=== PATIENT | female | born 1960 | race Caucasian/White ===

== ENCOUNTER 2022-06-18 10:33 | Observation (INO) | payer OTHER, SELFPAY ==
[2022-06-18] VITALS (9 sets, daily range): BP systolic 104–129; BP diastolic 54–89; PULSE 81–96; RESP 14–18; TEMP 36.7–37.6; O2SAT 90–97; BMI 35.9; BMI 36.0
--- NOTE | 2022-06-18 11:50 | CRLHL7_ITS ---
For Patients: As a result of the Cures Act, medical imaging exams and procedure reports are released immediately into your electronic medical record. You may view this report before your referring provider. If you have questions, please contact your health care provider. INDICATION: Shortness of breath TECHNIQUE: Chest radiograph 1 view COMPARISON: None FINDINGS: The sensitivity and specificity of the exam are severely limited by the patient`s body habitus. Mediastinum: The patient is status post transverse sternotomy and aortic valve replacement. The cardiac silhouette is moderately enlarged but may be accentuated by the portable technique. Lung: Small lung volumes present with minimal right basilar atelectasis. No sign of pleural effusion seen. No pneumothorax is identified. Bone and Soft tissue: Unremarkable for age. IMPRESSIONS: 1. The cardiac silhouette is moderately enlarged but may be accentuated by the portable technique. 2. Small lung volumes present with minimal right basilar atelectasis. Dictated by Chalo Larios MD @ 06/18/2022 1:17:18 PM Dictated by: Chalo Larios MD @ 06/18/2022 13:17:25 (Electronically Signed)
[2022-06-18 12:54] LABS: Basophils Percent Auto 0.6 % (0.0-3.0); Eosinophils Percent Auto 1.9 % (0.0-7.0); Hemoglobin* 10.1 gm/dL (12.0-16.0); Mean Corpuscular HGB Conc 32 gm/dL (32-36); Mean Corpuscular Hemoglobin 30 pg (26-34); Mean Corpuscular Volume 94 fL (80-100); Monocytes Percent Auto 5.9 % (0.0-11.0); Neutrophils Percent Auto 80.9 % (42.0-72.0); Platelet Count* 715 K/uL (140-440); RDW Coefficient of Variation % 13.2 % (11.5-15.5); Red Blood Count 3.41 m/uL (4.00-5.20)
[2022-06-18 12:59] LABS: Slide Review Reflex No
[2022-06-18 13:04] LABS: Chloride* 99 mmol/L (96-114); Potassium* 4.3 mmol/L (3.6-5.1); Sodium* 137 mmol/L (135-149)
[2022-06-18 13:07] LABS: Blood Urea Nitrogen* 21 mg/dL (7-30); Calcium* 9.6 mg/dL (8.4-10.6); Carbon Dioxide* 30 mmol/L (20-32); Creatinine* 0.6 mg/dL (0.5-1.5); Est. Creatinine Clearance* 50.37; Estimated Glomerular Filt Rate 101 ml/min; Glucose* 130 mg/dL (60-115)
--- NOTE | 2022-06-18 14:20 | CRLHL7_ITS ---
For Patients: As a result of the Century Cures Act, medical imaging exams and procedure reports are released immediately into your electronic medical record. You may view this report before your referring provider. If you have questions, please contact your health care provider. INDICATION: [id number]. TECHNIQUE: CT chest PE was acquired with 95 cc Isovue 370 IV contrast. COMPARISON: None. FINDINGS: Heart and vasculature: Contrast opacification of the pulmonary arterial tree is adequate. No sign of pulmonary embolism. Heart is mildly enlarged. Aortic valvular repair. Small pericardial effusion. Few tiny foci of hyperdensity adjacent to the ascending aorta (series 4, image 72), possibly postsurgical in nature. Lungs and pleura: 1.4 centimeter rounded right posterior upper lobe subpleural nodule, possibly related to focal atelectasis. Other scattered areas of dependent atelectasis. No pleural effusions, pleural thickening, or pneumothorax. Lymph nodes/mediastinum: Focal area complex fluid/soft tissue density in the retrosternal space immediately adjacent to sternotomy site. Multiple mildly enlarged mediastinal nodes, likely reactive. Chest wall: No masses. Upper abdomen: Moderate size hiatal hernia. Bones: Unremarkable for age. IMPRESSION: No pulmonary embolism as questioned. Focal area complex fluid/soft tissue density in the retrosternal space, immediately adjacent to the sternotomy site possibly postsurgical in nature. Superimposed infection should be clinically excluded. Mild cardiomegaly status post aortic valve repair with small pericardial effusion. Few tiny foci of hyperdensity adjacent to the ascending aorta (series 4, image 72), possibly postsurgical in nature. 1.4 centimeter rounded right posterior upper lobe subpleural nodule. Recommend correlation with prior imaging available. If not, recommend follow-up CT in 3 months. Please note that all CT scans at this facility use dose modulation, iterative reconstruction, and/or weight-based dosing when appropriate to reduce radiation dose to as low as reasonably achievable. Dictated by Cosme Jerry MD @ 06/18/2022 4:29:04 PM (Electronically Signed)
--- NOTE | 2022-06-18 15:28 | ED_ITS ---
HPI - General Adult General Chief complaint: Shortness of Breath/Dyspnea Stated complaint: shortness of breatj Time Seen by Provider: 06/18/22 11:28 History of Present Illness HPI narrative: 62-year-old female coming in today complaining of not feeling. She states that on 06/06 she had an aortic valve replacement done in [place]. She was complaining of chest pain, back pain and shortness of breath immediately after surgery. She feels like she was discharged home to [place] and that her pain and shortness of breath were not adequately treated. She then flew on the , to [place] on her way back to [place]. She developed worsening chest pain and shortness of breath while on the airplane and an ambulance was called. Ambulance picked her up from the airport it took her to the hospital. Thorough workup was done which included a CT to rule out PE and nothing was found. According to the patient she was quite hypoxic however was discharged home on oxygen. She presents today stating that she still feels very short of breath. She states that her pain is better. She states that she cannot see her incision in the groin but feels like it is moist. She also complains that the incision under the right breast is moist. She is concerned that no one is taking her shortness of breath seriously. She states that her body just cannot take in the oxygen appropriately since her surgery. Her pain, in her chest and in her back, have both been getting better over the last couple days. However is was very stressful driving here from [place] postoperatively. She is not on a blood thinner aside from a daily aspirin. She has not been having any fevers, nausea or vomiting. Related Data Home Medications Medication Instructions Recorded Confirmed albuterol sulfate 90 mcg/actuation inhalation 06/18/22 aerosol inhaler aspirin 325 mg tablet mg 06/18/22 methocarbamol 750 mg tablet mg 06/18/22 metoprolol tartrate 25 mg tablet mg 06/18/22 oxycodone 5 mg tablet mg 06/18/22 potassium chloride 20 mEq meq PO 06/18/22 tablet,extended release(part/cryst) torsemide 10 mg tablet mg 06/18/22 Allergies Allergy/AdvReac Type Severity Reaction Status Date / Time No Known Drug Allergies Allergy Verified 06/18/22 11:09 Review of Systems Status of ROS: Reports: 10 or more systems reviewed and unremarkable except as noted in History and below [facility] Surgical History S/P aortic valve repair Social History Smoking Status: Smoker, status unknown How often do you have six or more drinks on one occasion: Never AUDIT-C Alcohol total score: 0 Non-prescribed substance use: denies use Exam Narrative: Exam Narrative: Well-nourished well-developed patient in no acute distress but she is a bit anxious. Alert and oriented. Answers questions appropriately. Mood and affect are appropriate. Thoughts are goal oriented and rational. No tangential or magical thinking noted. Patient speaks in full sentences without needing to catch their breath. HEENT: Normocephalic atraumatic. Pupils are equally round reactive to light. Extraocular muscles are intact. Conjunctivae are moist without any icterus noted. Moist mucous membranes. Posterior pharynx is normal. Neck is soft without any lymphadenopathy or thyromegaly. No masses are appreciated. Cardiovascular: Heart is regular rate and rhythm S1 and S2 are present with a 2/6 murmur. Lungs: End expiratory bibasilar crackles. Abdomen: Soft and nontender nondistended with normal bowel sounds. No guarding or rebound. No masses or organomegaly appreciated. Extremities: Bilateral lower extremities are without edema. Normal DP and PT pulses. Skin: Well perfused without any obvious rashes. Incision under the right breast is moist but does not appear infected, the skin edges have not closed up. She still has a suture in place. Her incision in the groin is erythematous and has purulent drainage. Const: Vital Signs, click to edit/add: Vital Signs - 24 hr 06/18/22 11:09 06/18/22 12:10 06/18/22 13:16 Temperature 98.1 F Pulse Rate [Right Pulse Oximeter] 96 92 Respiratory Rate 14 16 Blood Pressure [Ri ght Upper Arm] 129/89 112/54 L Pulse Oximetry 96 95 97 Oxygen Delivery Me thod Nasal Cannula Room Air Oxygen Flow Rate 2 06/18/22 14:00 06/18/22 17:54 Temperature 99.7 F H Pulse Rate [Right Pulse Oximeter] 86 85 Respiratory Rate 16 16 Blood Pressure [Ri ght Upper Arm] 117/55 L 104/69 Pulse Oximetry 97 95 Oxygen Delivery Me thod Room Air Room Air Oxygen Flow Rate Course Course Hospital Course: IV was established we proceeded with blood work which showed elevated white cell count at just above 14,000. This is unchanged from her visit in [place] on 06/14/2022. Hemoglobin is stable at just above 10. However her platelet count 1 from [id number] to [id number]. I did consult with Dr. Varner who is concerned about the possibility of infection versus acute leukemia. She recommended peripheral blood smear and a PE study. Did go ahead and do that- no PE was visualized. She does have what appears to be hematoma present which is unchanged from her previous CT scan done in [place] she has a mild pericardial effusion also unchanged from the exam done in [place]. Peripheral blood smear was ordered and sent out. I did consult with , cardiology at [facility], who is also concerned about the thrombocytosis. He recommended admission, repeat labs and an echocardiogram. We did go ahead and draw blood cultures, do a wound culture of her groin, and per Dr. Alcocer, started her on vanc and Zosyn. Patient remained hemodynamically stable while in the ED: She was not hypoxic standing 94-97% on room air, pulse in the 80s to 90s and blood pressure was stable. Vital Signs Vital signs: Initial Vital Signs Temperature 98.1 F 06/18/22 11:09 Temperature Source Temporal Artery Scan 06/18/22 11:09 Pulse Rate 96 06/18/22 11:09 Pulse Rhythm 06/18/22 11:09 Respiratory Rate 14 06/18/22 11:09 Blood Pressure 129/89 06/18/22 11:09 Blood Pressure Mean 102 06/18/22 11:09 Blood Pressure Position Sitting 06/18/22 11:09 Pulse Oximetry 96 06/18/22 11:09 Oxygen Delivery Method 06/18/22 11:09 Oxygen Flow Rate 2 06/18/22 11:09 Vital Signs Temperature 98.1 F 06/18/22 11:09 Pulse Rate 96 06/18/22 11:09 Respiratory Rate 14 06/18/22 11:09 Blood Pressure 129/89 06/18/22 11:09 Pulse Oximetry 96 06/18/22 11:09 Oxygen Delivery Method 06/18/22 11:09 Oxygen Flow Rate 2 06/18/22 11:09 Temperature 99.7 F H 06/18/22 17:54 Pulse Rate 85 06/18/22 17:54 Respiratory Rate 16 06/18/22 17:54 Blood Pressure 104/69 06/18/22 17:54 Pulse Oximetry 95 06/18/22 17:54 Oxygen Delivery Method 06/18/22 17:54 Oxygen Flow Rate 2 06/18/22 11:09 Medical Decision Making MDM Narrative Medical decision making narrative: 62-year-old female status post aortic valve replacement presenting with acute thrombocytosis, cellulitis of groin incision, subjective shortness of breath status post aortic valve replacement. Patient will be admitted per the recommendation of Cardiology. Medical Records Medical records reviewed: Yes I reviewed the patient's medical records Lab Data Lab results reviewed: Yes I reviewed the patient's lab results Labs: Lab Results 06/18/22 06/18/22 Range/Units 12:40 12:40 WBC 14.00 H (4.50-11.00) K/uL RBC 3.41 L (4.00-5.20) m/uL Hgb 10.1 L (12.0-16.0) gm/dL Hct 32.0 L (33.0-51.0) % MCV 94 (80-100) fL MCH 30 (26-34) pg MCHC 32 (32-36) gm/dL RDW Coeff of Ad[place] 13.2 (11.5-15.5) % Plt Count 715 H (140-440) K/uL Neut % (Auto) 80.9 H (42.0-72.0) % Lymph % (Auto) 10.0 L (20-44) % [place] % (Auto) 5.9 (0.0-11.0) % Eos % (Auto) 1.9 (0.0-7.0) % Baso % (Auto) 0.6 (0.0-3.0) % Neut # (Auto) 11.30 H (1.7-7.0) K/uL Lymph # (Auto) 1.40 (0.90-2.90) K/uL [place] # (Auto) 0.80 (0.00-0.90) K/UL Eos # (Auto) 0.30 (0.00-0.50) K/uL Baso # (Auto) 0.10 (0.00-0.30) K/uL Abs Immat Gran (auto) 0.10 (0.00-0.30) K/uL Sodium 137 (135-149) mmol/L Potassium 4.3 (3.6-5.1) mmol/L Chloride 99 (96-114) mmol/L Carbon Dioxide 30 (20-32) mmol/L BUN 21 (7-30) mg/dL Creatinine 0.6 (0.5-1.5) mg/dL Estimated Creat Clear 50.37 Estimated GFR 101 ml/min Glucose 130 H (60-115) mg/dL Calcium 9.6 (8.4-10.6) mg/dL NT-Pro-B Natriuret Pep 760 H (0-125) PG/mL Imaging Data Chest x-ray: Attestation: I have reviewed the pertinent imaging results. Radiologist's impression: TECHNIQUE: Chest radiograph 1 view COMPARISON: None FINDINGS: The sensitivity and specificity of the exam are severely limited by the patient`s body habitus. Mediastinum: The patient is status post transverse sternotomy and aortic valve replacement. The cardiac silhouette is moderately enlarged but may be accentuated by the portable technique. Lung: Small lung volumes present with minimal right basilar atelectasis. No sign of pleural effusion seen. No pneumothorax is identified. Bone and Soft tissue: Unremarkable for age. IMPRESSIONS: 1. The cardiac silhouette is moderately enlarged but may be accentuated by the portable technique. 2. Small lung volumes present with minimal right basilar atelectasis. CT scan - chest: Attestation: I have reviewed the pertinent imaging results. Radiologist's impression: TECHNIQUE: CT chest PE was acquired with 95 cc Isovue 370 IV contrast. COMPARISON: None. FINDINGS: Heart and vasculature: Contrast opacification of the pulmonary arterial tree is adequate. No sign of pulmonary embolism. Heart is mildly enlarged. Aortic valvular repair. Small pericardial effusion. Few tiny foci of hyperdensity adjacent to the ascending aorta (series 4, image 72), possibly postsurgical in nature. Lungs and pleura: 1.4 centimeter rounded right posterior upper lobe subpleural nodule, possibly related to focal atelectasis. Other scattered areas of dependent atelectasis. No pleural effusions, pleural thickening, or pneumothorax. Lymph nodes/mediastinum: Focal area complex fluid/soft tissue density in the retrosternal space immediately adjacent to sternotomy site. Multiple mildly enlarged mediastinal nodes, likely reactive. Chest wall: No masses. Upper abdomen: Moderate size hiatal hernia. Bones: Unremarkable for age. IMPRESSION: No pulmonary embolism as questioned. Focal area complex fluid/soft tissue density in the retrosternal space, immediately adjacent to the sternotomy site possibly postsurgical in nature. Superimposed infection should be clinically excluded. Mild cardiomegaly status post aortic valve repair with small pericardial effusion. Few tiny foci of hyperdensity adjacent to the ascending aorta (series 4, image 72), possibly postsurgical in nature. 1.4 centimeter rounded right posterior upper lobe subpleural nodule. Recommend correlation with prior imaging available. If not, recommend follow-up CT in 3 months. ECG Data Attestation: I personally reviewed and interpreted this ECG as follows: (Normal sinus rhythm, pulse 85) Discharge Plan Discharge Clinical Impression: Infected incision, Shortness of breath, Thrombocytosis Patient Disposition: Admitted As Inpatient Condition: Stable
[2022-06-18] MEDS: PIPERACILLIN/TAZOBACTAM 3.375 GM in 0.9 % SODIUM CHLORIDE Mini-bag 100 ML IVPB ×2 (17:50→23:19)
[2022-06-18 17:55] LABS: NT Pro B Type NatriureticPept* 760 PG/mL (0-125)
[2022-06-18 19:12] LABS: SARS PCR* Negative SARS-CoV-2 (Negative)
--- NOTE | 2022-06-18 19:55 | P.IMHP_ITS ---
Hospitalist- H&P: HPI History of Present Illness Date Seen: 06/18/22 Chief complaint: shortness of breath Narrative: Peggy Blood is a 62 year old female who during a recent evaluation for revision of left partial knee replacement was noted to have an echo from 2018 showing mild aortic stenosis. During further evaluation, pt had a repeat echo which showed more severe stenosis. Pt elected to have a porcine aortic valve placed at [facility] in [facility] on June 06. Pt's surgery by report went well but she did have a prolonged stay due to what she describes as respiratory issues. Pt was discharged to home and was anticipating flying from [place] to [place] to [facility]. Pt became more short of breath during the fling to [place] and was actually taken via ambulance to [facility] in [place] where she was evaluated for approximately 7 hours. She had a workup including a PE CT scan, chest x ray, EKG, Electrolytes, CBC and serial troponins. Pt's medications were not adjusted but she was allowed to leave on 2 liters of oxygen to travel to her mother's house an hour away. Her mother then drove her back to [place] where she arrived last night. Pt's shortness of breath persisted and she noted that the incision under her left breast and in her right groin were becoming erythema tous. No fever was noted. Pt's lab in the [facility] ED showed a persistent elevation in the WBC at 14 as compared to that in [place]. The platelet count went from [address] of the chest showed no evidence of PE. Pt does have a 1.4 cm pulmonary nodule in the posterior upper lobe. ED physician spoke to both cardiology and hematology who recommended antibiotics, blood and wound cultures, echocardiogram in the am and repeat laboratory studies. Pt admitted. Review of Systems Status of ROS: Reports: 10 or more systems reviewed and unremarkable except as noted in History and below [facility] Medical History (Updated 06/18/22 @ 20:18 by Ridge Alcocer MD) GERD (gastroesophageal reflux disease) Low back pain Osteoarthritis Osteoarthritis Pulmonary nodule Shortness of breath Surgical History (Updated 06/18/22 @ 20:09 by Ridge Alcocer MD) Aortic valve replaced H/O left knee surgery History of carpal tunnel surgery S/P aortic valve repair Social History Smoking Status: Smoker, status unknown How often do you have six or more drinks on one occasion: Never AUDIT-C Alcohol total score: 0 Non-prescribed substance use: denies use Meds Home Medications and Allergies Home Medications Medication Instructions Recorded Confirmed Type albuterol sulfate 90 mcg/actuation inhalation 06/18/22 History aerosol inhaler aspirin 325 mg tablet mg 06/18/22 History methocarbamol 750 mg tablet mg 06/18/22 History metoprolol tartrate 25 mg tablet mg 06/18/22 History oxycodone 5 mg tablet mg 06/18/22 History potassium chloride 20 mEq meq PO 06/18/22 History tablet,extended release(part/cryst) torsemide 10 mg tablet mg 06/18/22 History Home Medication Comments: Metoprolol and torsemide started post aortic valve replacement Allergies Allergy/AdvReac Type Severity Reaction Status Date / Time No Known Drug Allergies Allergy Verified 06/18/22 11:09 Exam Narrative: Exam Narrative: EXAM GENERAL: Patient appears comfortable and well. EYES: No scleral icterus. THYROID: no thyroid nodules or thyromegaly. LYMPH: No supraclavicular or cervical lymphadenopathy. SKIN: The wound under the right breast shows erythema with stitches in place. No drainage or swelling. The wound in the left groin pain has proximally 2 cm opening through which we removed express a small amount exudative material. No deep fluctuance noted. Wound has been cultured. EXT: No dependent lower extremity pedal edema. HEART: 2/6 systolic murmur. Regular rate. LUNGS: Clear to auscultation bilaterally with no crackles or wheezes. ABD: Soft, non tender, non distended. PSYCH: Good eye contact, speech is not pressured. Const: Vital Signs, click to edit/add: Vital Signs - 24 hr 06/18/22 11:09 06/18/22 12:10 06/18/22 13:16 Temperature 98.1 F Pulse Rate [Right Pulse Oximeter] 96 92 Respiratory Rate 14 16 Blood Pressure [Ri ght Upper Arm] 129/89 112/54 L Pulse Oximetry 96 95 97 Oxygen Delivery Me thod Nasal Cannula Room Air Oxygen Flow Rate 2 06/18/22 14:00 06/18/22 17:54 Temperature 99.7 F H Pulse Rate [Right Pulse Oximeter] 86 85 Respiratory Rate 16 16 Blood Pressure [Ri ght Upper Arm] 117/55 L 104/69 Pulse Oximetry 97 95 Oxygen Delivery Me thod Room Air Room Air Oxygen Flow Rate Hospitalist - H&P: Result Labs Labs: Short CBC 06/18/22 Range/Units 12:40 WBC 14.00 H (4.50-11.00) K/uL Hgb 10.1 L (12.0-16.0) gm/dL Hct 32.0 L (33.0-51.0) % Plt Count 715 H (140-440) K/uL BMP 06/18/22 12:40 Sodium 137 Potassium 4.3 Chloride 99 Carbon Dioxide 30 BUN 21 Creatinine 0.6 Glucose 130 H Calcium 9.6 Assessment and Plan Assessment and plan (1) Aortic valve replaced: Status: Acute Assessment and Plan: Case reviewed with hematology and cardiology. The cultures of blood and from the wound have been collected. I did ask that the patient receive Vancomycin and Zosyn which we will continue due to the fresh valve. Peripheral smear requested. Repeating labs in am. Echocardiogram ordered. Pt showing no signs of sepsis but we will need to do all we can to prevent endocarditis. Will discuss the wounds with surgery. Requesting full records from [place] and [facility]. We did clean and redress the wounds. Pt appears to be up to date on her tetanus shot. (2) Shortness of breath: Status: Acute Assessment and Plan: Unclear eitiology. Pt saturating normally on room air. Will place on oxymetry and tele. No signs of CHF or PE on imaging. (3) Thrombocytosis: Status: Acute Assessment and Plan: This may be an acute phase reactant. Peripheral smear pending. Repeat CBC in the am. (4) Pulmonary nodule: Status: Acute Assessment and Plan: Will need outpt follow up. (5) GERD (gastroesophageal reflux disease): Status: Chronic Assessment and Plan: Treat symptomatically (6) Osteoarthritis: Status: Chronic Assessment and Plan: Treat symptomatically Plan Pt is to be a full code.
[2022-06-18 21:43] LABS: Reticulocyte Hemoglobin Equivi 23.9 pg (29.0-35.0); Reticulocyte Percent 3.3 % (0.5-2.0); Reticulocytes Absolute 0.11 # (0.03-0.08)
[2022-06-19] VITALS (9 sets, daily range): BP systolic 109–125; BP diastolic 48–72; PULSE 80–92; RESP 16–20; TEMP 36.3–36.8; O2SAT 90–97
[2022-06-19] MEDS: HYDROCODONE-ACETAMIN 5-325 MG 1 TAB PO ×3 (03:31→17:52)
--- NOTE | 2022-06-19 05:08 | PC.NURSE ---
Alert and oriented x4. Vital signs satble. Denies SOB. Tolerating knee pain well; 1/2 tab Hydrocodone administered for pain management. Independent with ambulation. Left groin incision dressing CDI. Abx administered as per orders without reactions being noted
[2022-06-19] MEDS: PIPERACILLIN/TAZOBACTAM 3.375 GM in 0.9 % SODIUM CHLORIDE Mini-bag 100 ML IVPB ×4 (05:53→22:44)
[2022-06-19 06:53] LABS: Basophils Absolute Auto 0.08 K/uL (0.00-0.30); Basophils Percent Auto 0.8 % (0.0-3.0); Eosinophils Absolute Auto 0.36 K/uL (0.00-0.50); Eosinophils Percent Auto 3.5 % (0.0-7.0); Hematocrit 29.3 % (33.0-51.0); Hemoglobin* 9.2 gm/dL (12.0-16.0); Lymphocytes Percent Auto 14.3 % (20-44); Mean Corpuscular HGB Conc 31 gm/dL (32-36); Mean Corpuscular Hemoglobin 29 pg (26-34); Mean Corpuscular Volume 94 fL (80-100); Monocytes Percent Auto 8.7 % (0.0-11.0); Neutrophils Absolute Auto 7.34 K/uL (1.7-7.0); Neutrophils Percent Auto 71.7 % (42.0-72.0); Platelet Count* 682 K/uL (140-440); RDW Coefficient of Variation % 13.4 % (11.5-15.5); Red Blood Count 3.13 m/uL (4.00-5.20); White Blood Count* 10.23 K/uL (4.50-11.00)
[2022-06-19 06:58] LABS: Slide Review Reflex No
[2022-06-19 07:10] LABS: Albumin* 3.8 g/dL (3.3-5.0); Chloride* 103 mmol/L (96-114)
[2022-06-19 07:11] LABS: Potassium* 4.2 mmol/L (3.6-5.1); Sodium* 138 mmol/L (135-149)
[2022-06-19 07:13] LABS: Alkaline Phosphatase* 74 U/L (40-150); Aspartate Amino Transferase* 20 U/L (12-35); Bilirubin Total* 0.3 mg/dL (0.1-1.5); Blood Urea Nitrogen* 19 mg/dL (7-30); Carbon Dioxide* 29 mmol/L (20-32); Creatinine* 0.7 mg/dL (0.5-1.5); Est. Creatinine Clearance* 50.37; Estimated Glomerular Filt Rate 98 ml/min
[2022-06-19 07:14] LABS: Alanine Aminotransferase* 17 U/L (4-35); Calcium* 9.1 mg/dL (8.4-10.6); Glucose* 112 mg/dL (60-115)
--- NOTE | 2022-06-19 11:00 | CRLHL7_ITS ---
For Patients: As a result of the Cures Act, medical imaging exams and procedure reports are released immediately into your electronic medical record. You may view this report before your referring provider. If you have questions, please contact your health care provider. Indication: left groin incision infection. assess any communication with vessels Technique: Grayscale and color Doppler ultrasound of the left groin soft tissues performed. Comparison: None Findings: There is a circumscribed fluid collection within the left groin subcutaneous tissues which is located superficial to the underlying vessels. No evidence of aneurysm or pseudoaneurysm. This collection measures 5.6 x 1.9 x 4.0 cm. Impression: 5.6 x 1.9 x 4.0 centimeter fluid collection without connection to the vessels. Dictated by Lazaro Kamara MD @ 06/19/2022 11:43:02 AM (Electronically Signed)
--- NOTE | 2022-06-19 11:00 | P.GSCN_ITS ---
History of Present Illness Consult details Date Seen: 06/19/22 Consult date: 06/19/22 Narrative: Patient is a very pleasant 62-year-old female who presented to the emergency department with fatigue and shortness of breath. She underwent a porcine aortic valve placement on 06/03/2022 in [facility]. She states that she traveled to the area in order to undergo the procedure. After she was discharged from the hospital she was flying home and had a layover in [place]. In [place] she reports that she started to have chest pain and shortness of breath. She was admitted to the hospital at that time and then subsequently discharged. From [place] she drove back home to [place], which took 3 days. Upon arrival to the area she immediately went to the emergency department for continued shortness of breath, fatigue and chest pain. During her initial workup there was evidence of redness and drainage from her left groin incision. Upon talking to the patient it sounds like this was an access point for ECMO during her initial procedure. The initial admitting physician opened up the incision just slightly and had approximately 40 mL purulent material that drained. This was cultured and patient has been started on antibiotics. Since the area has open she notes continued purulent drainage, redness to the area and tenderness. She denies any fevers or chills. She has 2 other incisions that are continuing to heal from the initial surgery. The incision on her chest is almost completely healed with no concern for infection or pain. She also has a small incision underneath her right breast, this does still have a suture in place and appears slightly irritated. She denies any drainage from this incision site. Review of Systems Status of ROS: Reports: 10 or more systems reviewed and unremarkable except as noted in History and below [facility] Medical History GERD (gastroesophageal reflux disease) Low back pain Osteoarthritis Osteoarthritis Pulmonary nodule Shortness of breath Surgical History Aortic valve replaced H/O left knee surgery History of carpal tunnel surgery S/P aortic valve repair Social History Highest level of school completed/degree received: some college, no degree Smoking Status: Never smoker Do you use any of these nicotine containing products: None Second hand tobacco smoke exposure: No How often do you have a drink containing alcohol: never How often do you have six or more drinks on one occasion: Never AUDIT-C Alcohol total score: 0 Non-prescribed substance use: denies use Caffeine: Yes (rarely) service: No Meds Home Medications and Allergies Home Medications Medication Instructions Recorded Confirmed Type albuterol sulfate 90 mcg/actuation 2 puff inhalation Q4H PRN 06/18/22 06/19/22 History aerosol inhaler aspirin 325 mg tablet 325 mg PO DAILY 06/18/22 06/19/22 History methocarbamol 750 mg tablet 750 mg PO TID PRN 06/18/22 06/19/22 History metoprolol tartrate 25 mg tablet 25 mg PO BID 06/18/22 06/19/22 History oxycodone 5 mg tablet 5 mg PO Q4H PRN 06/18/22 06/19/22 History potassium chloride 20 mEq 20 meq PO DAILY 06/18/22 06/19/22 History tablet,extended release(part/cryst) torsemide 10 mg tablet 10 mg PO BID 06/18/22 06/19/22 History fexofenadine 180 mg tablet 180 mg PO DAILY PRN 06/19/22 06/19/22 History (Rita Allergy) omeprazole 40 mg capsule,delayed 40 mg PO DAILY 06/19/22 06/19/22 History release Allergies Allergy/AdvReac Type Severity Reaction Status Date / Time No Known Drug Allergies Allergy Verified 06/18/22 11:09 Exam Narrative: Exam Narrative: General: Alert and oriented, no acute distress. Nontoxic in appearance Respiratory: Equal breath rise bilaterally, maintained on room air. CV: Well perfused Chest: Right sided chest incision well healed, some overlying scab no concern for infection and nontender to palpation. Small incision just below the right breast with silk suture in place, some surrounding erythema and irritation present but no drainage and nontender to palpation. The suture was removed and the incision redressed with benzoin and Steri-Strips. Genitourinary: Left groin incision with induration and surrounding erythema. Some continued purulent drainage and underlying fluctuance appreciated. Small 5 mm opening. Const: Vital Signs, click to edit/add: Vital Signs - 24 hr 06/18/22 11:09 06/18/22 12:10 06/18/22 13:16 Temperature 98.1 F Pulse Rate Pulse Rate [Pulse Oximeter] Pulse Rate [Right Pulse Oximeter] 96 92 Respiratory Rate 14 16 Blood Pressure [Ri ght Arm] Blood Pressure [Ri ght Upper Arm] 129/89 112/54 L Pulse Oximetry 96 95 97 Oxygen Delivery Me thod Nasal Cannula Room Air Oxygen Flow Rate 2 06/18/22 14:00 06/18/22 17:54 06/18/22 19:58 Temperature 99.7 F H 98.2 F Pulse Rate Pulse Rate [Pulse Oximeter] 81 Pulse Rate [Right Pulse Oximeter] 86 85 Respiratory Rate 16 16 18 Blood Pressure [Ri ght Arm] 121/64 Blood Pressure [Ri ght Upper Arm] 117/55 L 104/69 Pulse Oximetry 97 95 95 Oxygen Delivery Me thod Room Air Room Air Room Air Oxygen Flow Rate 06/18/22 20:21 06/18/22 22:49 06/18/22 23:00 Temperature 98.2 F Pulse Rate Pulse Rate [Pulse Oximeter] Pulse Rate [Right Pulse Oximeter] Respiratory Rate 18 18 Blood Pressure [Ri ght Arm] 116/75 Blood Pressure [Ri ght Upper Arm] Pulse Oximetry 90 92 92 Oxygen Delivery Me thod Nasal Cannula Room Air Oxygen Flow Rate 0 0 06/18/22 23:00 06/19/22 03:00 06/19/22 08:25 Temperature 98.2 F Pulse Rate 89 Pulse Rate [Pulse Oximeter] 81 80 Pulse Rate [Right Pulse Oximeter] Respiratory Rate 18 18 Blood Pressure [Ri ght Arm] 125/72 Blood Pressure [Ri ght Upper Arm] Pulse Oximetry 90 Oxygen Delivery Me thod Room Air Oxygen Flow Rate 0 06/19/22 07:00 06/19/22 07:00 Temperature 97.4 F L Pulse Rate Pulse Rate [Pulse Oximeter] 90 90 Pulse Rate [Right Pulse Oximeter] Respiratory Rate 18 18 Blood Pressure [Ri ght Arm] 110/48 L Blood Pressure [Ri ght Upper Arm] Pulse Oximetry 94 Oxygen Delivery Me thod Room Air Oxygen Flow Rate Results Labs Labs: Abnormal lab results 06/18/22 06/18/22 06/18/22 Range/Units 12:40 12:40 17:50 WBC 14.00 H (4.50-11.00) K/uL RBC 3.41 L (4.00-5.20) m/uL Hgb 10.1 L (12.0-16.0) gm/dL Hct 32.0 L (33.0-51.0) % MCHC (32-36) gm/dL Plt Count 715 H (140-440) K/uL Neut % (Auto) 80.9 H (42.0-72.0) % Lymph % (Auto) 10.0 L (20-44) % Neut # (Auto) 11.30 H (1.7-7.0) K/uL Absolute Retic 0.11 H (0.03-0.08) # Percent Retic 3.3 H (0.5-2.0) % Immature Retic Fraction 29.0 H (3.0-15.9) % Retic Hgb Equivalent 23.9 L (29.0-35.0) pg Glucose 130 H (60-115) mg/dL NT-Pro-B Natriuret Pep 760 H (0-125) PG/mL 06/19/22 Range/Units 06:22 WBC (4.50-11.00) K/uL RBC 3.13 L (4.00-5.20) m/uL Hgb 9.2 L (12.0-16.0) gm/dL Hct 29.3 L (33.0-51.0) % MCHC 31 L (32-36) gm/dL Plt Count 682 H (140-440) K/uL Neut % (Auto) (42.0-72.0) % Lymph % (Auto) 14.3 L (20-44) % Neut # (Auto) 7.34 H (1.7-7.0) K/uL Absolute Retic (0.03-0.08) # Percent Retic (0.5-2.0) % Immature Retic Fraction (3.0-15.9) % Retic Hgb Equivalent (29.0-35.0) pg Glucose (60-115) mg/dL NT-Pro-B Natriuret Pep (0-125) PG/mL Diabetes panel 06/18/22 06/19/22 Range/Units 12:40 06:22 Sodium 137 138 (135-149) mmol/L Potassium 4.3 4.2 (3.6-5.1) mmol/L Chloride 99 103 (96-114) mmol/L Carbon Dioxide 30 29 (20-32) mmol/L BUN 21 19 (7-30) mg/dL Creatinine 0.6 0.7 (0.5-1.5) mg/dL Glucose 130 H 112 (60-115) mg/dL Calcium 9.6 9.1 (8.4-10.6) mg/dL AST 20 (12-35) U/L ALT 17 (4-35) U/L Alkaline Phosphatase 74 (40-150) U/L Total Protein 7.0 (6.0-8.3) g/dL Albumin 3.8 (3.3-5.0) g/dL Calcium panel 06/18/22 06/19/22 Range/Units 12:40 06:22 Calcium 9.6 9.1 (8.4-10.6) mg/dL Albumin 3.8 (3.3-5.0) g/dL Pituitary panel 06/18/22 06/19/22 Range/Units 12:40 06:22 Sodium 137 138 (135-149) mmol/L Potassium 4.3 4.2 (3.6-5.1) mmol/L Chloride 99 103 (96-114) mmol/L Carbon Dioxide 30 29 (20-32) mmol/L BUN 21 19 (7-30) mg/dL Creatinine 0.6 0.7 (0.5-1.5) mg/dL Glucose 130 H 112 (60-115) mg/dL Calcium 9.6 9.1 (8.4-10.6) mg/dL Adrenal panel 06/18/22 06/19/22 Range/Units 12:40 06:22 Sodium 137 138 (135-149) mmol/L Potassium 4.3 4.2 (3.6-5.1) mmol/L Chloride 99 103 (96-114) mmol/L Carbon Dioxide 30 29 (20-32) mmol/L BUN 21 19 (7-30) mg/dL Creatinine 0.6 0.7 (0.5-1.5) mg/dL Glucose 130 H 112 (60-115) mg/dL Calcium 9.6 9.1 (8.4-10.6) mg/dL Total Bilirubin 0.3 (0.1-1.5) mg/dL AST 20 (12-35) U/L ALT 17 (4-35) U/L Alkaline Phosphatase 74 (40-150) U/L Total Protein 7.0 (6.0-8.3) g/dL Albumin 3.8 (3.3-5.0) g/dL All other labs normal. Imaging US - pelvic: image reviewed Assessment and Plan Assessment and plan (1) Superficial incisional infection of surgical site: Status: Acute Plan Patient is a 62-year-old female with evidence of a surgical site infection of the left groin. This is status post access from a recent cardiac surgery, suspect ECMO cannulation. It has been partially drained at bedside. A bedside ultrasound was performed with evidence of a continued fluid collection within the subcutaneous tissue. This does overlie the femoral vessels, but does not involve the vasculature. No evidence of any pseudoaneurysm. The incision was opened and irrigated at bedside. Wet to dry dressings were placed. Recommend b.i.d. wet to dry dressings while inpatient and then daily at the time of discharge. General Surgery Procedures I/D Type: abscess Site: other (Left groin ) Side (if applicable): left Sedation/analgesia: none Anesthetic used: lidocaine 1% Technique: incised with #11 blade Amount of fluid (mL): 10 Irrigation: Yes Packing used?: plain (kerlex soaked)
--- NOTE | 2022-06-19 11:31 | RESP.RT ---
Patient is SATing 97% on room air at rest. She does not require supplemental O2 at this time. She does have several risk factors for LM and does say that she snores and it was recommended that she be screened for LM in the past, but she has never scheduled an appointment.
--- NOTE | 2022-06-19 11:59 | PC.NURSE ---
Patient's groin wound was disharging a brownish disharges. Both wound at left groin and under right breast cleaned. Wound swab taken and wound irrigation done by the surgeon.
[2022-06-19] MEDS: OXYCODONE 5 MG TABLET PO ×2 (15:38→20:02)
--- NOTE | 2022-06-19 15:58 | PM.IMPN1 ---
Progress Note: A&P Assessment and plan (1) Shortness of breath: Status: Acute Assessment and Plan: 1. Seemingly resolved. 2. Our respiratory therapist assess the patient and she has no need for oxygen supplementation at this time. (2) Superficial incisional infection of surgical site: Status: Acute Assessment and Plan: 1. Our general surgeon has been assisting us with this. 2. The groin wound was impart debrided and then dressing applied. 3. Twice daily dressing changes in the hospital and then once daily out of the hospital. 4. Consider wound care referral postop ill is a koch. (3) Osteoarthritis of left knee: Status: Acute Assessment and Plan: 1. Will ask our physical therapist and occupational therapist to assess her at this time. 2. She hopes to start cardiopulmonary rehabilitation next week status post aortic valve replacement. (4) Aortic valve replaced: Status: Acute Assessment and Plan: 1. Restart aspirin tomorrow. 2. She is scheduled to start cardiopulmonary rehabilitation next week. Will need physical and occupational therapy to see her while in hospital to give her any recommendations in anticipation of initiating rehab next week. (5) Infected incision: Status: Acute Assessment and Plan: 1. Continue with IV antibiotics for now. 2. Continue with twice daily dressing changes in the hospital and switch to once daily after discharge from the hospital. (6) Thrombocytosis: Status: Acute Assessment and Plan: 1. Monitor CBC (7) GERD (gastroesophageal reflux disease): Status: Chronic Assessment and Plan: 1. Continue proton pump inhibitor use. (8) Pulmonary nodule: Status: Acute Assessment and Plan: 1. Will need followup in the future in regard to this. (9) Snoring: Status: Acute Assessment and Plan: 1. Reviewed with patient my concern that she may have undiagnosed obstructive sleep apnea. 2. Overnight oximetry test. Make referral for sleep assessment test in the outpatient setting prior. Plan 1. Reviewed my impressions with the patient. 2. Answered her questions are satisfaction. 3. Patient is agreeable to above stated plans and recommendations. Time Spent With Patient Total time spent: 50 minutes Subjective Time Seen by Provider: 10:00 Date Seen: 06/19/22 Interval history: Hospital day 2. Generally feels improved today compared to yesterday when she 1st presented. As I query her about her shortness of breath she indicates that that is not so much a problem as it is that she has been having a hard time clearing her throat since her valve replacement surgery 1 week ago. Even the ability to clear throat is slowly improving. Denies dyspnea at rest, paroxysmal nocturnal dyspnea, orthopnea. Has incisional chest discomfort but no chest heaviness, pressure, tightness. Denies syncope or near-syncope. Denies orthostasis. Denies nausea or vomiting. Denies fevers, rigors, diaphoresis. Acknowledged that she has been urged in the past t to obtain a sleep study assessment for possible obstructive sleep apnea. Acknowledges snoring at night. Often awakens in the morning not feeling refreshed. Difficult to manage her weight. Exam Narrative: Exam Narrative: Appears comfortable. No acute distress. Alert, articulate, cooperative, friendly. Mood and affect are congruent. Oriented to place, time, situation. Lungs are clear to auscultation. Heart tones with regular rhythm. Grade 2-3/6 systolic murmur. Abdomen with active bowel sounds. Left groin incisional wound inspected with Dr. Taylor and appears clean with serous drainage. Independent transfer, station, and gait. No focal motor neurologic deficits. Const: Vital Signs, click to edit/add: Vital Signs - 24 hr 06/18/22 17:54 06/18/22 19:58 06/18/22 20:21 Temperature 99.7 F H 98.2 F Pulse Rate Pulse Rate [Pulse Oximeter] 81 Pulse Rate [Right Pulse Oximeter] 85 Respiratory Rate 16 18 Blood Pressure [Ri ght Arm] 121/64 Blood Pressure [Ri ght Upper Arm] 104/69 Pulse Oximetry 95 95 90 Oxygen Delivery Me thod Room Air Room Air Oxygen Flow Rate Fraction of Inspir ed Oxygen 06/18/22 22:49 06/18/22 23:00 06/18/22 23:00 Temperature 98.2 F Pulse Rate Pulse Rate [Pulse Oximeter] 81 Pulse Rate [Right Pulse Oximeter] Respiratory Rate 18 18 18 Blood Pressure [Ri ght Arm] 116/75 Blood Pressure [Ri ght Upper Arm] Pulse Oximetry 92 92 Oxygen Delivery Me thod Nasal Cannula Room Air Oxygen Flow Rate 0 0 Fraction of Inspir ed Oxygen 06/19/22 03:00 06/19/22 08:25 06/19/22 07:00 Temperature 98.2 F Pulse Rate 89 Pulse Rate [Pulse Oximeter] 80 90 Pulse Rate [Right Pulse Oximeter] Respiratory Rate 18 18 Blood Pressure [Ri ght Arm] 125/72 Blood Pressure [Ri ght Upper Arm] Pulse Oximetry 90 Oxygen Delivery Me thod Room Air Oxygen Flow Rate 0 Fraction of Inspir ed Oxygen 06/19/22 07:00 06/19/22 11:28 06/19/22 11:00 Temperature 97.4 F L 97.4 F L Pulse Rate Pulse Rate [Pulse Oximeter] 90 90 Pulse Rate [Right Pulse Oximeter] Respiratory Rate 18 18 Blood Pressure [Ri ght Arm] 110/48 L 110/48 L Blood Pressure [Ri ght Upper Arm] Pulse Oximetry 94 97 97 Oxygen Delivery Me thod Room Air Room Air Room Air Oxygen Flow Rate 0 Fraction of Inspir ed Oxygen 0.21 0.21 Documenting provider has reviewed patient's vital signs: yes Labs Labs: Laboratory Results - last 24 hr 06/18/22 06/18/22 06/18/22 12:40 17:23 17:50 WBC RBC Hgb Hct MCV MCH MCHC RDW Coeff of [place]ilia Plt Count Neut % (Auto) Lymph % (Auto) [place] % (Auto) Eos % (Auto) Baso % (Auto) Neut # (Auto) Lymph # (Auto) [place] # (Auto) Eos # (Auto) Baso # (Auto) Abs Immat Gran (auto) Absolute Retic 0.11 H Percent Retic 3.3 H Immature Retic Fraction 29.0 H Retic Hgb Equivalent 23.9 L Sodium Potassium Chloride Carbon Dioxide BUN Creatinine Estimated Creat Clear Estimated GFR Glucose Calcium Total Bilirubin AST ALT Alkaline Phosphatase NT-Pro-B Natriuret Pep 760 H Total Protein Albumin SARS-CoV-2 (PCR) Negative SARS-CoV-2 06/19/22 06/19/22 06:22 06:22 WBC 10.23 RBC 3.13 L Hgb 9.2 L Hct 29.3 L MCV 94 MCH 29 MCHC 31 L RDW Coeff of [place] 13.4 Plt Count 682 H Neut % (Auto) 71.7 Lymph % (Auto) 14.3 L [place] % (Auto) 8.7 Eos % (Auto) 3.5 Baso % (Auto) 0.8 Neut # (Auto) 7.34 H Lymph # (Auto) 1.50 [place] # (Auto) 0.90 Eos # (Auto) 0.36 Baso # (Auto) 0.08 Abs Immat Gran (auto) 0.10 Absolute Retic Percent Retic Immature Retic Fraction Retic Hgb Equivalent Sodium 138 Potassium 4.2 Chloride 103 Carbon Dioxide 29 BUN 19 Creatinine 0.7 Estimated Creat Clear 50.37 Estimated GFR 98 Glucose 112 Calcium 9.1 Total Bilirubin 0.3 AST 20 ALT 17 Alkaline Phosphatase 74 NT-Pro-B Natriuret Pep Total Protein 7.0 Albumin 3.8 SARS-CoV-2 (PCR)
[2022-06-19] MEDS: METOPROLOL TARTRATE 25 MG TABLET PO (20:30)
--- NOTE | 2022-06-19 22:55 | PC.NURSE ---
Shift [id number]- Patient rates pain 4-8/10 this shift, with pain in back, knees and groin incision. She reports good pain relief with PRN pain medication- see eMAR. She remains on RA with saturations mid-high 90s% while awake. She is up ad harmony. Appetite intact. Incision under right breast with steri-strips- appears without discharge, but slightly moist apparently from sweat. Reinforced with a small piece of gauze. Dressing change to groin completed- appears to have minimal discharge there as well.
[2022-06-20 03:00] VITALS: BP 140/87; PULSE 91; RESP 20; TEMP 36.6; O2SAT 96
[2022-06-20] MEDS: OXYCODONE 5 MG TABLET PO ×4 (03:18→21:00)
[2022-06-20] MEDS: PIPERACILLIN/TAZOBACTAM 3.375 GM in 0.9 % SODIUM CHLORIDE Mini-bag 100 ML IVPB ×4 (05:15→22:45)
[2022-06-20 06:37] LABS: Hemoglobin* 9.3 gm/dL (12.0-16.0)
--- NOTE | 2022-06-20 06:53 | PC.NURSE ---
END OF SHIFT NOTE: PT PLEASANT AND COOPERATIVE. NOCTURNAL OXIMETRY STUDY PERFORMED OVERNIGHT. PT C/O DYSPNEA, SOB?AND LEFT KNEE PAIN. PT MOVES INDEPENDENTLY WITH WALKER. AMBULATES WELL WITH LEFT SIDED LIMP. NON-PRODUCTIVE COUGH. LS SLIGHTLY DIMINISHED IN POSTERIOR BASES. VSS ON RA; AFEBRILE. RATES LEFT KNEE PAIN 5-9/10 WITH RELIEF FROM OXYCODONE AND REST. DRESSING UNDER RIGHT BREAST AND TO LEFT GROIN C/D/I. PT HAD SMALL LOOSE STOOL THIS SHIFT.
[2022-06-20 07:06] LABS: NT Pro B Type NatriureticPept* 979 PG/mL (0-125)
[2022-06-20 07:41] VITALS: BP 119/66; PULSE 88; RESP 22; TEMP 36.4; O2SAT 94
[2022-06-20] MEDS: ALBUTEROL INHALER 2 PUFF IH (08:02)
[2022-06-20] MEDS: BUDESONIDE 0.5 MG/2ML NEB NEB ×2 (08:49→21:00)
[2022-06-20] MEDS: OMEPRAZOLE 20 MG CAPSULE DR 40 MG PO (08:50)
[2022-06-20] MEDS: TORSEMIDE 20 MG TABLET PO (08:50)
[2022-06-20] MEDS: METOPROLOL TARTRATE 25 MG TABLET PO ×2 (08:50→21:00)
[2022-06-20] MEDS: POTASSIUM CHLORIDE 10 MEQ CAPSULE ER 20 MEQ PO (08:50)
--- NOTE | 2022-06-20 09:11 | CRLHL7_ITS ---
For Patients: As a result of the Century Cures Act, medical imaging exams and procedure reports are released immediately into your electronic medical record. You may view this report before your referring provider. If you have questions, please contact your health care provider. INDICATION: 1 WEEK S/P AVR, NOW C/O OF LEFT CALF KAREN HORSE FOR 3-4 DAYS COMPARISON: None. TECHNIQUE: A compression venous ultrasound exam was performed of the left lower extremity using cronin-scale imaging, color Doppler and spectral Doppler analysis. FINDINGS: Sonographic imaging of the left lower extremity demonstrates normal compressibility and color Doppler venous blood flow within the common femoral vein, deep femoral vein, and the proximal greater saphenous vein. Within the thigh, the femoral vein is patent and compressible. At a lower level, the popliteal and posterior tibial veins also show normal compressibility and color Doppler venous blood flow. Hypoechoic occlusive clot located within the left soleus vein in the proximal calf. Partial DVT located within 1 of the paired peroneal veins in the proximal calf. Limited imaging of the contralateral groin demonstrates a normal spectral waveform and color Doppler venous blood flow within the right common femoral vein. Circumscribed fluid collection within the left thigh proximally again noted measuring 4.7 x 3.5 x 6.0 cm. IMPRESSION: Positive DVT within 1 of the paired left peroneal veins and within a deep muscular calf vein (soleus vein). Called to Dr. Jackson 1110 06.20.22. Dictated by Lazaro Kamara MD @ 06/20/2022 11:10:38 AM (Electronically Signed)
[2022-06-20] MEDS: IPRAT-ALBUT 0.5-2.5 MG/3 ML NEB 1 NEB IH ×4 (09:13→21:00)
--- NOTE | 2022-06-20 09:54 | NUTR.NU ---
YANET with verbal MD nutrition consult. RDN visited with patient whom reported her appetite and has been lower than normal, however she reports she has had recent surgery (aortic valve placed 06/06/22) which is the cause. She reports receiving diet education after that surgery, and declined diet education today. RDN encouraged patient to let staff know of any questions or concerns she may have. TRAVISN will continue to monitor and follow-up prn.
--- NOTE | 2022-06-20 10:32 | P.GSPN_ITS ---
Subjective Subjective Date Seen: 06/20/22 Interval history: Patient denies any pain or issues with her left groin wound. No reported fevers or chills. She does state that around 3:00 a.m. this morning she had a severe coughing fit and coughed up quite a bit of phlegm. When she woke up she describes having the feeling of ?an elephant on her chest?. Since then she has had a few breathing treatments, with some improvement but continued heaviness in her chest. She also reports pain in her left calf. This was being ultrasound this morning to evaluate for any DVT. Exam Narrative: Exam Narrative: General: Alert oriented. Nontoxic. Genitourinary: Left groin dressing removed. 3 cm x 2 cm x 1 cm wound with granulation tissue within wound bed, much less fibrinous exudate and no undrained fluid pockets. No surrounding erythema or induration. Nontender to palpation. Const: Vital Signs, click to edit/add: Vital Signs - 24 hr 06/19/22 11:28 06/19/22 11:00 06/19/22 15:20 Temperature 97.4 F L 98.1 F Pulse Rate Pulse Rate [Pulse Oximeter] 90 86 Respiratory Rate 18 16 Blood Pressure [Ri ght Arm] 110/48 L 109/54 L Pulse Oximetry 97 97 93 Oxygen Delivery Me thod Room Air Room Air Oxygen Flow Rate 0 Fraction of Inspir ed Oxygen 0.21 0.21 06/19/22 15:09 06/19/22 19:07 06/19/22 23:45 Temperature 98 F Pulse Rate 85 Pulse Rate [Pulse Oximeter] 92 84 Respiratory Rate 16 20 Blood Pressure [Ri ght Arm] 115/59 L Pulse Oximetry 96 Oxygen Delivery Me thod Room Air Oxygen Flow Rate Fraction of Inspir ed Oxygen 06/19/22 23:45 06/20/22 03:00 06/20/22 07:41 Temperature 97.8 F 97.8 F 97.6 F Pulse Rate Pulse Rate [Pulse Oximeter] 84 91 88 Respiratory Rate 20 20 22 Blood Pressure [Ri ght Arm] 119/62 140/87 H 119/66 Pulse Oximetry 96 96 94 Oxygen Delivery Me thod Room Air Room Air Room Air Oxygen Flow Rate 0 0 Fraction of Inspir ed Oxygen 0 0 Progress Note: A&P Assessment and plan (1) Superficial incisional infection of surgical site: Status: Acute Assessment and Plan: Groin wound is much better in appearance this morning following debridement yesterday at bedside. No concern for any further undrained fluid collections, less fibrinous exudate and healthy granulation tissue within wound bed. No concern for any surrounding cellulitis or induration. Recommend that she continue with twice daily dressing changes of Vashe soaked Kerlix and outer 4 x 4 while inpatient. At the time of discharge she can transition to once daily dressing changes with follow-up in surgery clinic to evaluate for wound healing. At this time general surgery to sign off. All other cares and workup to be done by hospitalist care team. Please call with any acute clinical changes, questio ns or concerns.
[2022-06-20 11:00] VITALS: BP 117/70; PULSE 72; RESP 20; TEMP 36.6; O2SAT 96
[2022-06-20] MEDS: ENOXAPARIN 100 MG/ML INJ 90 MG SUBCUT (11:05)
[2022-06-20 15:00] VITALS: BP 97/60; PULSE 92; RESP 18; TEMP 37; O2SAT 96
--- NOTE | 2022-06-20 15:25 | P.IMPN_ITS ---
Progress Note: A&P Assessment and plan (1) Asthma attack: Status: Acute Assessment and Plan: 1. Initiate scheduled DuoNebs. 2. Initiate scheduled budesonide nebulization. 3. Teach patient appropriate use of metered dose inhaler with process developer. Contin ue with albuterol meter dose rescue inhaler as needed. 4. Use of Aerobika device. (2) Snoring: Status: Acute Assessment and Plan: 1. In concert with now documented nocturnal hypoxia, high risk for underlying obstructive sleep apnea. (3) Nocturnal hypoxia: Status: Acute Assessment and Plan: 1. Documented on overnight oximetry test. In concert with snoring and obesity, high risk for underlying obstructive sleep apnea. 2. Will need outpatient sleep study to further assess. (4) Superficial incisional infection of surgical site: Status: Acute Assessment and Plan: 1. 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 On Zosyn IV. 2. Currently on vancomycin IV. Will stop the vancomycin. 3. When she is ready for discharge will transition to oral Augmentin 875/125 1 tab p.o. b.i.d. 4. Continue with twice daily dressing changes while in hospital. At time of discharge will likely change to once daily. 5. Will need follow up with her primary care physician in regard to ongoing management of this wound. (5) Deep venous thrombosis (DVT) of left peroneal vein: Status: Acute Assessment and Plan: 1. Reviewed findings with the patient. Discussed implications. 2. Recommended initiation of anticoagulation therapy at this time. She is agreeable. 3. In-hospital will start with enoxaparin subcutaneously 1 milligram/kilogram twice daily. 4. After we establish what her insurance company covers we will transition her to the medication that her insurance company covers. 5. Eventually were able to establish that her insurance does cover rivaroxaban. As such we will start her on rivaroxaban 15 mg twice daily for 21 days and thereafter 20 mg once daily. Patient will need a total of 3-6 months of anticoagulation therapy. This occurred in the setting of patient recently having had aortic valve replacement, followed by airplane rides, followed by 2-3 day car ride. 6. Recommended that she obtain either a necklace or bracelet that indicates she is on an anticoagulant and to wear at all times so long as she is on the anticoagulant. (6) Aortic valve replaced: Status: Acute Assessment and Plan: 1. Echocardiogram consistent with valvular cardiomyopathy, including moderate tricuspid regurgitation. 2. Aortic valve replacement appears to be functioning adequately at this juncture. 3. Patient will warrant follow-up with Cardiology hereafter. 4. Patient will certainly benefit from outpatient cardiac rehabilitation. She tells me that this is tentatively set up to begin as early as next week. (7) Shortness of breath: Status: Acute Assessment and Plan: 1. Most likely this is attributable to her asthma which has not been well controlled. 2. Dyspnea is improving with treatment directed toward her asthma. (8) Infected incision: Status: Acute (9) Osteoarthritis of left knee: Status: Acute Assessment and Plan: 1. Eventually this will need to be addressed. This was the primary reason why she sought medical consultation. Subsequent to this medical consultation she initiated cardiac assessment and then intervention and now the present circumstances. Obviously surgery will need to be delayed until such time as she completes her course of anticoagulation therapy for her deep venous thrombosis. 2. I have asked our physical therapist to see the patient in consultation here while in the hospital. (10) GERD (gastroesophageal reflux disease): Status: Chronic Assessment and Plan: 1. Adequately managed at this juncture. (11) Pulmonary nodule: Status: Acute Assessment and Plan: 1. Ongoing follow-up will be needed with her primary care physician and/or family dentist. (12) Thrombocytosis: Status: Acute Assessment and Plan: 1. Long-standing. (13) Obesity (BMI 35.0-39.9 without comorbidity): Status: Acute Assessment and Plan: 1. Initiated discussion about this particular condition possibly being more amenable to intervention if it is confirmed that she does indeed have obstructive sleep apnea and adequate treatment is initiated. Plan 1. Reviewed my impressions with the patient. 2. Answered her questions are satisfaction. 3. Patient agreeable to above stated plans and recommendations. 4. Should patient's condition continued to stabilize then it is possible that she may be in a position to be discharged home safely as early as tomorrow. Obviously should her condition not remain stable we may need to extend her hospitalization even longer. Time Spent With Patient Total time spent: 50 minutes Subjective Time Seen by Provider: 09:00 Date Seen: 06/20/22 Interval history: 62-year-old woman notes she continues to have a sense of dyspnea. Having coughing paroxysms and producing large amounts of clear sputum. Sometimes gags with these coughing paroxysms. Denies nausea vomiting. States her cough awakened her early this morning. Denies fevers, rigors, diaphoresis. Describes a sense of the her lungs feeling tight. Tolerating wound care efforts. Tolerating increased activities. With this however she notes that she has left calf discomfort. No left lower extremity edema. Exam Narrative: Exam Narrative: I assess her between 1 of her coughing paroxysms. She appears worn out. Pleasant, cooperative, articulate. Mood and affect are congruent. Alert, oriented to self, place, time, situation. Lungs with scattered rhonchi and wheezing, no rales. Heart tones with regular rhythm. Systolic murmur grade 2-3/6. No gallop or rub. Abdomen with active bowel sounds, soft, nontender. Tenderness to the left calf without lower extremity edema. Independent transfer, station and gait. No focal motor neurologic deficits. Left groin wound clean. Wound culture obtained on presentation grows out Morganella morganii, sensitive to Zosyn as well as Augmentin. No Gram-positive organisms. Wound culture obtained yesterday is growing out Gram-negative rods as well. No Gram-positive organisms. Const: Vital Signs, click to edit/add: Vital Signs - 24 hr 06/19/22 19:07 06/19/22 23:45 06/19/22 23:45 Temperature 98 F 97.8 F Pulse Rate [Pulse Oximeter] 92 84 84 Respiratory Rate 16 20 20 Blood Pressure [Ri t Arm] 115/59 L 119/62 Pulse Oximetry 96 96 Oxygen Delivery Me thod Room Air Room Air Oxygen Flow Rate 0 Fraction of Inspir ed Oxygen 0 06/20/22 03:00 06/20/22 07:41 06/20/22 11:00 Temperature 97.8 F 97.6 F 97.9 F Pulse Rate [Pulse Oximeter] 91 88 72 Respiratory Rate 20 22 20 Blood Pressure [Ri ght Arm] 140/87 H 119/66 117/70 Pulse Oximetry 96 94 96 Oxygen Delivery Me thod Room Air Room Air Room Air Oxygen Flow Rate 0 Fraction of Inspir ed Oxygen 0 Documenting provider has reviewed patient's vital signs: yes Labs Labs: Laboratory Results - last 24 hr 06/20/22 06/20/22 06:01 06:01 Hgb 9.3 L NT-Pro-B Natriuret Pep 979 H
[2022-06-20] MEDS: ACETAMINOPHEN 325 MG TABLET 650 MG PO ×2 (16:21→22:45)
--- NOTE | 2022-06-20 18:02 | PC.NURSE ---
shift note: vss stable. pt having difficulty with lt knee and lower back pain. pt rating pain as bad as 8/10. pt received oxycodone and tylenol PRN for pain with relief. pt had US of Lt l/e due to cramping of lower calf. DVT protocol initiated with silvana. scds, and lovenox. PP+ bilat. Incision to rt chest healed w/o redness. Lt groin drsg performed this a.m by Dr. kay. wound bed pink with intact edges. No redness around incision site. LS clr. pt having difficulty with chronic cough this a.m. pt instructed on aerobica and neb tx. Pt did produce small amounts of phlegm after coughing. IV patent
[2022-06-20 20:00] VITALS: BP 113/59; PULSE 81; RESP 20; TEMP 36.4; O2SAT 95
[2022-06-20] MEDS: RIVAROXABAN 10 MG TABLET 15 MG PO (21:00)
[2022-06-20 23:00] VITALS: BP 115/66; PULSE 82; RESP 18; TEMP 36.7; O2SAT 95
[2022-06-21 03:00] VITALS: BP 125/64; PULSE 79; RESP 16; TEMP 36.2; O2SAT 93
[2022-06-21] MEDS: PIPERACILLIN/TAZOBACTAM 3.375 GM in 0.9 % SODIUM CHLORIDE Mini-bag 100 ML IVPB ×2 (04:59→10:43)
--- NOTE | 2022-06-21 07:16 | PC.NURSE ---
END OF SHIFT NOTE:?PT PLEASANT AND COOPERATIVE. AMBULATES INDEPENDENTLY WITH WALKER WITHIN ROOM. VSS ON RA. LOWER BACK PAIN REPORTED OF 4-5/10 WITH RELIEF FROM PRN?OXYCODONE, PRN TYLENOL?AND ICE PACK. PT DENIES CP, SOB, N/V. ENCOURAGED AEROBIKA USE. RIGHT BREAST INCISION DRESSING CDI. RIGHT GROIN INCISION DRESSING CHANGED AND IS CDI; SITE SURROUNDING TISSUE PINK.
[2022-06-21] MEDS: OMEPRAZOLE 20 MG CAPSULE DR 40 MG PO (07:43)
[2022-06-21] MEDS: OXYCODONE 5 MG TABLET PO ×2 (07:54→14:57)
[2022-06-21 08:27] VITALS: BP 127/65; PULSE 89; RESP 20; O2SAT 99
[2022-06-21] MEDS: BUDESONIDE 0.5 MG/2ML NEB NEB (08:45)
[2022-06-21] MEDS: RIVAROXABAN 10 MG TABLET 15 MG PO (08:46)
[2022-06-21] MEDS: IPRAT-ALBUT 0.5-2.5 MG/3 ML NEB 1 NEB IH ×2 (08:46→14:02)
[2022-06-21] MEDS: POTASSIUM CHLORIDE 10 MEQ CAPSULE ER 20 MEQ PO (08:47)
[2022-06-21] MEDS: TORSEMIDE 20 MG TABLET PO (08:47)
[2022-06-21] MEDS: METOPROLOL TARTRATE 25 MG TABLET PO (08:47)
[2022-06-21] MEDS: ASPIRIN 81 MG TABLET EC PO (08:48)
[2022-06-21] MEDS: ACETAMINOPHEN 325 MG TABLET 650 MG PO (10:42)
[2022-06-21 12:00] VITALS: BP 122/68; PULSE 78; RESP 20; TEMP 36.8; O2SAT 94
[2022-06-21 15:00] VITALS: PULSE 78; RESP 20
--- NOTE | 2022-06-21 15:30 | PM.DS1 ---
DS: Providers Provider Time Seen by Provider: 10:00 Date Seen: 06/21/22 Date of admission: 06/18/22 18:26 Primary care physician: Maggie Smith Admitting Clinician: Ridge Alcocer MD Consults: 06/18/22 20:31 Consult to Physician [CONS] Routine Comment: Consulting Provider: Christelle Taylor Has provider been notified: Yes 06/19/22 15:30 Consult to Occupational Therapy [CONS] Routine Comment: Reason(s) for OT Consult:: Evaluate and Treat Any Restrictions?:: No Restrictions Comment: severe left knee osteoarthritis Consult to Physical Therapy [CONS] Routine Comment: Reason(s) for PT Consult:: Evaluate and Treat Any Restrictions?:: No Restrictions Comment: severe left knee osteoarthritis 06/20/22 08:17 Consult to Respiratory Therapy [CONS] Routine Comment: Reason(s) for RT Consult:: Consult Comment: aerobika device Attending Physician on discharge: Romulo Jackson MD Date of Discharge: 06/21/22 DS: Diagnosis Discharge Diagnosis (1) Shortness of breath: Status: Acute (2) Asthma attack: Status: Acute (3) Nocturnal hypoxia: Status: Acute (4) Snoring: Status: Acute (5) Superficial incisional infection of surgical site: Status: Acute (6) Aortic valve replaced: Status: Acute (7) Deep venous thrombosis (DVT) of left peroneal vein: Status: Acute (8) Osteoarthritis of left knee: Status: Acute (9) Pulmonary nodule: Status: Acute Problem details: Radiologist recommends repeat CT scan August of 2022 (10) Thrombocytosis: Status: Acute (11) Obesity (BMI 35.0-39.9 without comorbidity): Status: Acute (12) GERD (gastroesophageal reflux disease): Status: Chronic DS: Summary Hospital Course Hospital Course: 62-year-old woman status post aortic valve replacement about 1 week prior to presentation to the hospital presented to the hospital with shortness of breath. Patient was not tachypneic or hypoxic or acidotic on presentation. CT scan of chest with PE protocol was negative for PE. The concern rapidly transition to a surgical wound infection in the left groin. She was admitted for treatment of the same. Wound culture eventually grew out Morganella morganii sensitive to the Zosyn that she was started on. She had also been started on vancomycin empirically and that was stopped. Surgeon saw the patient in consultation and did wound debridement. We continued with twice daily dressing changes in hospital. Wound was much better controlled by the time she left the hospital. She continued to have shortness of breath sensation in the hospital despite no tachypnea, no hypoxia. Eventually became apparent that she was having an asthma attack. We treated her for the same with nebulized DuoNeb, budesonide, and use of Aerobika. In a relatively short period of time her asthma became much better controlled. We taught her how to appropriately use her metered-dose inhaler with a spacer. We did an overnight oximetry test with her. She had episodes of profound hypoxemia. We recommended that she confer with her primary care physician about the possibility of scheduling a formal sleep study in the future to assess for the possibility of obstructive sleep apnea. Day prior to discharge from the hospital she noted left calf discomfort. We could re produce that on palpation of the calf. Ultrasound demonstrated deep venous thrombosis. We gave her a single dose of enoxaparin and then we figured out which anticoagulant her insurance would cover. Subsequent we started higher on rivaroxaban 15 mg twice daily for 21 days and then switch to 20 mg daily for a total of 3-6 months. Status at Discharge Functional status at discharge: independent ambulation Overall status at discharge: patient is progressing back to baseline Time Spent with Patient Time attestation: Total time spent providing and/or coordinating discharge services: Exam Narrative: Exam Narrative: Appears much more rested today than she did yesterday. No acute distress. No longer as anxious as she was yesterday. Pleasant, cooperative, articulate.? Mood and affect are congruent.? Alert, oriented to self, place, time, situation. Lungs with are now clear to auscultation without wheezing, rhonchi, or rales. This is a drastic improvement from yesterday. Heart tones with regular rhythm.? Systolic murmur grade 2-3/6.? No gallop or rub.? Abdomen with active bowel sounds, soft, nontender.? Tenderness to the left calf without lower extremity edema. Independent transfer, station and gait.? No focal motor neurologic deficits. Left groin wound clean. Const: Vital Signs, click to edit/add: Vital Signs - 24 hr 06/20/22 20:00 06/20/22 23:00 06/20/22 23:00 Temperature 97.5 F L 98.0 F Pulse Rate [Bilate ral Dorsalis Pedis ] Pulse Rate [Pulse Oximeter] 81 82 82 Respiratory Rate 20 18 18 Blood Pressure [Ri ght Arm] 113/59 L 115/66 Pulse Oximetry 95 95 Oxygen Delivery Me thod Room Air Room Air Oxygen Flow Rate 0 0 Fraction of Inspir ed Oxygen 0 0 06/21/22 03:00 06/21/22 08:27 Temperature 97.1 F L Pulse Rate [Bilate ral Dorsalis Pedis ] 89 Pulse Rate [Pulse Oximeter] 79 89 Respiratory Rate 16 20 Blood Pressure [Ri ght Arm] 125/64 127/65 Pulse Oximetry 93 99 Oxygen Delivery Me thod Room Air Room Air Oxygen Flow Rate 0 Fraction of Inspir ed Oxygen 0 Documenting provider has reviewed patient's vital signs: yes DS: Data Data Completed and Pending Labs on day of discharge: Labs from last 24 hours 06/21/22 06/18/22 06:02 17:50 Hgb 10.0 L Peripher Smr Path Cons See Scanned Report Preliminary micro results at discharge 06/18/22 17:50 Blood Culture - Preliminary Blood NO GROWTH AFTER 48 HOURS 06/18/22 17:35 Blood Culture - Preliminary Blood NO GROWTH AFTER [address] scan - chest: Attestation: I have reviewed the pertinent imaging results. Radiologist's impression: Focal area complex fluid/soft tissue density in the retrosternal space, immediately adjacent to the sternotomy site possibly postsurgical in nature. Superimposed infection should be clinically excluded. Mild cardiomegaly status post aortic valve repair with small pericardial effusion. Few tiny foci of hyperdensity adjacent to the ascending aorta (series 4, image 72), possibly postsurgical in nature. 1.4 centimeter rounded right posterior upper lobe subpleural nodule. Recommend correlation with prior imaging available. If not, recommend follow-up CT in 3 months. Venous US: Radiologist's impression: Positive DVT within 1 of the paired left peroneal veins and within a deep muscular calf vein (soleus vein). Discharge Plan Discharge Disposition: Home, Self-Care Date of Admission: 06/18/22 18:26 Attending Provider on Discharge: Romulo Jackson Consulting Providers: Christelle Taylor Primary Care Provider: Maggie Smith Condition: Stable Anticipated Discharge Date/Time: 06/21/22 01:00 Discharge Medications: New rivaroxaban 15 mg (42)- 20 mg (9) tablets,dose pack See Rx Instructions .ROUTE .COMPLEX Qty: 51 0RF Rx Instructions: take one-15 mg tablet twice daily for 21 days, then one-20 mg tablet once daily; must take with meal/food acetaminophen [Pain Relief (acetaminophen)] 325 mg tablet 650 mg PO QID PRNQty: 90 0RF aspirin [Adult Low Dose Aspirin] 81 mg tablet,delayed release (DR/EC) 81 mg PO DAILY Qty: 90 2RF budesonide [Pulmicort] 0.5 mg/2 mL Suspension For Nebulization 0.5 mg NEB BID Qty: 60 2RF ipratropium-albuterol 0.5 mg-3 mg(2.5 mg base)/3 mL Solution For Nebulization 3 ml inhalation QID Qty: 90 2RF amoxicillin-pot clavulanate 875-125 mg tablet 1 tab PO BID Qty: 10 0RF Continued torsemide 10 mg tablet 10 mg PO BID potassium chloride 20 mEq tablet,ER particles/crystals 20 meq PO DAILY methocarbamol 750 mg tablet 750 mg PO TID PRN oxycodone 5 mg tablet 5 mg PO Q4H PRN metoprolol tartrate 25 mg tablet 25 mg PO BID omeprazole 40 mg capsule,delayed release(DR/EC) 40 mg PO DAILY fexofenadine [Rita Allergy] 180 mg tablet 180 mg PO DAILY PRN albuterol sulfate 90 mcg/actuation HFA aerosol inhaler 2 puff INHALATION Q4H PRNQty: 8.5 0RF Rx Instructions: Always use aircraft electronics technical officer when administering metered dose inhaler. Discontinued aspirin 325 mg tablet 325 mg PO DAILY Discharge Orders: Discharge Order (Routine); Ordered 06/21/22 Ordered By: Romulo Jackson Patient Education: Acetaminophen (By mouth), Aspirin (By mouth), Amoxicillin/Clavulanate Potassium (By mouth), Budesonide (By breathing), Ipratropium/Albuterol (By breathing), Rivaroxaban (By mouth), Asthma (ED), Deep Vein Thrombosis (GEN), How to Use a Nebulizer (GEN), Acute Wounds (GEN) Activity Restrictions/Additional Instructions: 1. Keep Pulmonary appointment and take with you a copy of the CT scan of the chest; 2. Follow-up with primary care physician this week for wound assessment and assessment of lungs; 3. Will need anticoagulation for 3-6 months - work with Dr. Smith; 4. Continue with plans for cardiac rehabilitation; 5. Return to clinic or hospital sooner if condition warrants; 6. Continue with eventual plans for joint replacement. Activity Level: Activity as Tolerated and Use Walker Discharge Diet: Heart Healthy (2 gm sodium, low fat) Follow Up Appointments: Christelle Taylor MD [Staff Physician] - 06/23/22 2:30 pm (Dressing Change with one of partners) Maggie Smith [Primary Care Provider] - (Follow up with primary as needed ) Forms: [employer] Info Instructions
--- NOTE | 2022-06-21 18:53 | PC.NURSE ---
shift note: vss stable. pt afeb. pt states she feels better today. noted pt is able to carry on full conversation without being sob. pt still becomes slightly sob with activity but recovers within a few minutes with rest. LS clr. Pt using aerobica throughout the day. pt had intermittent coughing spell this a.m and produce moderate amount of white/frothy phlegm. pt states she had small BM. Reviewed dc instructions with pt and her family. Demonstrated wound care to lt inner thigh with . questions addressed. Supplies for wound care sent with pt. IV dc'd intact Rt AC. Belongings reviewed and sent with pt at dc.
== END 2022-06-21 17:30 | disposition home or self-care (01) ==
LOC: ED 17:36 → MEDSURG 18:27
PROVIDERS: Internal Medicine; Admitting Provider Internal Medicine; Emergency Provider Family Medicine; PCP Internal Medicine; Visit Provider Internal Medicine
DX: R09.02 Hypoxemia (principal); T81.49XA Infection following a procedure, other surgical site, initial encounter; B96.4 Proteus (mirabilis) (morganii) as the cause of diseases classified elsewhere; J45.901 Unspecified asthma with (acute) exacerbation; G47.34 Idiopathic sleep related nonobstructive alveolar hypoventilation; D72.829 Elevated white blood cell count, unspecified; I82.452 Acute embolism and thrombosis of left peroneal vein; Z95.2 Presence of prosthetic heart valve; K21.9 Gastro-esophageal reflux disease without esophagitis; D75.839 Thrombocytosis, unspecified; R91.1 Solitary pulmonary nodule; R06.02 Shortness of breath; R06.83 Snoring; M17.12 Unilateral primary osteoarthritis, left knee; Z68.36 Body mass index [BMI] 36.0-36.9, adult; E66.9 Obesity, unspecified; I10 Essential (primary) hypertension; R07.9 Chest pain, unspecified; Z79.82 Long term (current) use of aspirin; F17.200 Nicotine dependence, unspecified, uncomplicated; I31.3 Pericardial effusion (noninflammatory); L03.314 Cellulitis of groin; M54.50 Low back pain, unspecified; I42.9 Cardiomyopathy, unspecified; I07.1 Rheumatic tricuspid insufficiency
CPT/HCPCS: 36415; 71045; 71260; 76882; 80048; 80053; 83880; 85018; 85025; 85045; 87040; 87070; 87186; 87635; 93005; 93306; 93926; 93971; 94640; 94664; 94761; 96365; 96366; 96368; 96372; 97110; 97116; 97161; 97165; 97535; 99285; G0378; A9270; G0379; J1650; J2543; J3370; J7120; J7626; Q9967

== ENCOUNTER 2022-06-26 14:46 | Outpatient (CLI) | payer OTHER, SELFPAY | END 2022-06-26 14:47 | disposition home or self-care (01) | LOC: WOUND 14:46 | PROVIDERS: PCP Internal Medicine; Visit Provider Nurse Practitioner Family | DX: S21.101A Unspecified open wound of right front wall of thorax without penetration into thoracic cavity, initial encounter (principal); T81.31XA Disruption of external operation (surgical) wound, not elsewhere classified, initial encounter | CPT/HCPCS: 11042; 99213 ==

== ENCOUNTER 2022-07-03 15:00 | Outpatient (CLI) | payer OTHER, SELFPAY | END 2022-07-03 15:01 | disposition home or self-care (01) | PROVIDERS: PCP Internal Medicine; Visit Provider Nurse Practitioner Family | DX: S21.101A Unspecified open wound of right front wall of thorax without penetration into thoracic cavity, initial encounter (principal); T81.31XA Disruption of external operation (surgical) wound, not elsewhere classified, initial encounter; Z95.2 Presence of prosthetic heart valve; Z79.01 Long term (current) use of anticoagulants | CPT/HCPCS: 11042 ==

== ENCOUNTER 2022-07-16 20:47 | Emergency (ER) | payer OTHER, SELFPAY ==
[2022-07-16 21:03] VITALS: BP 153/103; PULSE 89; RESP 18; TEMP 36.8; O2SAT 99; BMI 42.9
--- NOTE | 2022-07-16 21:39 | ED.GENADULT ---
HPI - General Adult General Chief complaint: Eye Problems Stated complaint: Weird Shocks in Head Altered Vision Time Seen by Provider: 07/16/22 21:03 History of Present Illness HPI narrative: This 62-year-old female comes in reporting brief episodes of shooting pain in her forehead over the past several days. These last for less than a minute. She also has had some visual changes today that present like flickering or shimmering lights in her visual field. She had a valve replacement a couple months ago and is currently taking metoprolol and Xarelto postoperatively. She does not report any unilateral weakness or altered sensation. She does not have any altered speech. Currently she feels normal. Related Data Home Medications Medication Instructions Recorded Confirmed methocarbamol 750 mg tablet 750 mg PO TID PRN 06/18/22 06/23/22 metoprolol tartrate 25 mg tablet 25 mg PO BID 06/18/22 06/23/22 potassium chloride 20 mEq 20 meq PO DAILY 06/18/22 06/23/22 tablet,extended release(part/cryst) torsemide 10 mg tablet 10 mg PO BID 06/18/22 06/23/22 fexofenadine 180 mg tablet 180 mg PO DAILY PRN 06/19/22 06/23/22 (Rita Allergy) omeprazole 40 mg capsule,delayed 40 mg PO DAILY 06/19/22 06/23/22 release Previous Rx's Medication Instructions Recorded rivaroxaban 15 mg (42)-20 mg (9) See Rx Instructions PO .COMPLEX 06/20/22 tablets in a starter pack #51 ea acetaminophen 325 mg tablet (Pain 650 mg PO QID PRN #90 tabs 06/21/22 Relief (acetaminophen)) albuterol sulfate 90 mcg/actuation 2 puff inhalation Q4H PRN #8.5 06/21/22 aerosol inhaler grams amoxicillin 875 mg-potassium 1 tab PO BID #10 tabs 06/21/22 clavulanate 125 mg tablet aspirin 81 mg tablet,delayed 81 mg PO DAILY #90 tabs 06/21/22 release (Adult Low Dose Aspirin) budesonide 0.5 mg/2 mL suspension 0.5 mg (2 mL) NEB BID #60 mL 06/21/22 for nebulization (Pulmicort) ipratropium 0.5 mg-albuterol 3 mg 3 ml inhalation QID #90 mL 06/21/22 (2.5 mg base)/3 mL nebulization soln Allergies Allergy/AdvReac Type Severity Reaction Status Date / Time No Known Drug Allergies Allergy Verified 07/16/22 21:08 Review of Systems Status of ROS: Reports: 10 or more systems reviewed and unremarkable except as noted in History and below Narrative: Constitutional: No fevers, no weight gain or loss. Eyes: No discharge. Visual changes as described above. HENT: No congestion, no sore throat, no ear pain. Cardiovascular: No chest pain, no palpitations. Respiratory: No shortness of breath, no wheezes, no cough. Gastrointestinal: No abdominal pain, no vomiting, no diarrhea. Genitourinary: No dysuria, no hematuria. Musculoskeletal: Normal range of motion. Skin: No rashes, no pruritis. Neurological: No dizziness, weakness, sensory change, speech change. Endo/Heme/Allergies: No bruising or bleeding. No polydipsia. Pysch: no suicidality, no anxiety, no insomnia. All other systems reviewed and are negative. [facility] Medical History (Updated 07/16/22 @ 21:44 by Miles Liao MD) Asthma GERD (gastroesophageal reflux disease) Low back pain Obesity (BMI 35.0-39.9 without comorbidity) Osteoarthritis Osteoarthritis Osteoarthritis of left knee Pulmonary nodule Surgical History Aortic valve replaced H/O left knee surgery History of carpal tunnel surgery S/P aortic valve repair Social History Highest level of school completed/degree received: some college, no degree Smoking Status: Never smoker Do you use any of these nicotine containing products: None Second hand tobacco smoke exposure: No How often do you have a drink containing alcohol: never How often do you have six or more drinks on one occasion: Never AUDIT-C Alcohol total score: 0 Non-prescribed substance use: denies use Caffeine: Yes (rarely) service: No Exam Narrative: Exam Narrative: Constitutional: Well-developed, well-nourished, no acute distress. HEENT: Normocephalic, atraumatic. Conjugate gaze. No alteration in visual roman. Neck: Normal range of motion. Nontender. Supple. Heart: Regular. No murmurs. Normal rate. Intact distal pulses. Lungs: Clear to auscultation. No chest discomfort. No wheezes, rhonchi, or rales. Abdomen: Normal bowel sounds. Nontender. No rebound tenderness. Genitalia: Deferred. Back: No midline tenderness. Normal range of motion. Extremities: Normal range of motion. No injury. Skin: Intact. No rash. Warm. No erythema or pallor. Neurologic: No altered sensation. No weakness. Alert and oriented. No facial asymmetry. Tongue is midline. [id number] is normal. No pronator drift. Heel to koch is normal. Psychiatric: No suicidality. No anxiety or depression. No insomnia. Nursing notes and vitals signs are reviewed. Const: Vital Signs, click to edit/add: Vital Signs - 24 hr 07/16/22 21:03 Temperature 98.2 F Pulse Rate [Right Pulse Oximeter] 89 Respiratory Rate 18 Blood Pressure [Ri ght Upper Arm] 153/103 H Pulse Oximetry 99 Oxygen Delivery Me thod Room Air Course Vital Signs Vital signs: Initial Vital Signs Temperature 98.2 F 07/16/22 21:03 Temperature Source Temporal Artery Scan 07/16/22 21:03 Pulse Rate 89 07/16/22 21:03 Respiratory Rate 18 07/16/22 21:03 Blood Pressure 153/103 H 07/16/22 21:03 Blood Pressure Mean 119 07/16/22 21:03 Blood Pressure Position Supine 07/16/22 21:03 Pulse Oximetry 99 07/16/22 21:03 Oxygen Delivery Method 07/16/22 21:03 Vital Signs Temperature 98.2 F 07/16/22 21:03 Pulse Rate 89 07/16/22 21:03 Respiratory Rate 18 07/16/22 21:03 Blood Pressure 153/103 H 07/16/22 21:03 Pulse Oximetry 99 07/16/22 21:03 Oxygen Delivery Method 07/16/22 21:03 Temperature 98.2 F 07/16/22 21:03 Pulse Rate 89 07/16/22 21:03 Respiratory Rate 18 07/16/22 21:03 Blood Pressure 153/103 H 07/16/22 21:03 Pulse Oximetry 99 07/16/22 21:03 Oxygen Delivery Method 07/16/22 21:03 Medical Decision Making MDM Narrative Medical decision making narrative: This patient comes in with brief symptoms lasting seconds involving some zingers in her forehead. This seems to be bilateral at times. She also has some visual changes typical of scintillating scotoma. This also is short-lived. Currently she feels completely normal. Throughout this time she has not had any headache but she does describe a history of migraine headaches with some visual changes in the more distant past. Neurologic exam is completely normal. I did discuss lab and imaging options with the patient and in a process of shared decision making she declined these for now. Her symptoms can be attributed to a migraine syndrome despite not really having any ongoing headache. I did discuss and review her medications. It does not seem immediately clear that her medications can be contributing to these symptoms. She is reassured in this regard and prefers to return home to continue current plans. She has a follow-up appointment with her college service officer next week and will review medications with him. I did describe signs and symptoms that are more suspicious for a stroke however she is on Xarelto so the likelihood of a embolic event is mediated. Discharge Plan Discharge Clinical Impression: Scintillating scotoma Patient Disposition: Home, Self-Care Condition: Stable Additional Instructions: Continue current plans. Follow up with MD as scheduled or return if worsening or recurrent symptoms happen. Prescriptions: No Action torsemide 10 mg tablet 10 mg PO BID potassium chloride 20 mEq tablet,ER particles/crystals 20 meq PO DAILY methocarbamol 750 mg tablet 750 mg PO TID PRN metoprolol tartrate 25 mg tablet 25 mg PO BID omeprazole 40 mg capsule,delayed release(DR/EC) 40 mg PO DAILY fexofenadine [Rita Allergy] 180 mg tablet 180 mg PO DAILY PRN rivaroxaban 15 mg (42)- 20 mg (9) tablets,dose pack See Rx Instructions .ROUTE .COMPLEX Qty: 51 0RF Rx Instructions: take one-15 mg tablet twice daily for 21 days, then one-20 mg tablet once daily; must take with meal/food acetaminophen [Pain Relief (acetaminophen)] 325 mg tablet 650 mg PO QID PRNQty: 90 0RF aspirin [Adult Low Dose Aspirin] 81 mg tablet,delayed release (DR/EC) 81 mg PO DAILY Qty: 90 2RF budesonide [Pulmicort] 0.5 mg/2 mL Suspension For Nebulization 0.5 mg NEB BID Qty: 60 2RF ipratropium-albuterol 0.5 mg-3 mg(2.5 mg base)/3 mL Solution For Nebulization 3 ml inhalation QID Qty: 90 2RF amoxicillin-pot clavulanate 875-125 mg tablet 1 tab PO BID Qty: 10 0RF albuterol sulfate 90 mcg/actuation HFA aerosol inhaler 2 puff INHALATION Q4H PRNQty: 8.5 0RF Rx Instructions: Always use poker room manager when administering metered dose inhaler. Follow Up/Referrals: Maggie Smith [Primary Care Provider] - Stand Alone Forms: [facility] Info Instructions
== END 2022-07-16 21:58 | disposition home or self-care (01) ==
PROVIDERS: Emergency Provider Emergency Medicine Emergency Medical Services; PCP Internal Medicine
DX: H53.129 Transient visual loss, unspecified eye (principal)
CPT/HCPCS: 99282; 99283; 99284

== ENCOUNTER 2022-07-17 14:42 | Outpatient (CLI) | payer OTHER, SELFPAY | END 2022-07-17 14:43 | disposition home or self-care (01) | LOC: WOUND 14:42 | PROVIDERS: PCP Internal Medicine; Visit Provider Nurse Practitioner Family | DX: T81.31XA Disruption of external operation (surgical) wound, not elsewhere classified, initial encounter (principal); S21.101A Unspecified open wound of right front wall of thorax without penetration into thoracic cavity, initial encounter | CPT/HCPCS: 99213 ==

== ENCOUNTER 2022-08-12 14:49 | Outpatient (CLI) | payer OTHER, SELFPAY ==
--- NOTE | 2022-08-12 15:00 | CRLHL7_ITS ---
For Patients: As a result of the Century Cures Act, medical imaging exams and procedure reports are released immediately into your electronic medical record. You may view this report before your referring provider. If you have questions, please contact your health care provider. Indication: pleural effusion,abnormal finding Technique: Noncontrast CT chest including supine inspiratory high-resolution imaging. Please note that all CT scans at this facility use dose modulation, iterative reconstruction, and/or weight-based dosing when appropriate to reduce radiation dose to as low as reasonably achievable. Comparison: 06/18/2022 Findings: Mild patchy areas of atelectasis noted bilaterally. Cluster of nodules within the right lower lobe again noted measuring up to 14 millimeters, the largest nodule contains calcification. These are considered benign. Interval resolution of pericardial effusion since the prior examination. Hiatal hernia measuring 5 cm again noted. Upper abdomen otherwise unremarkable. Postop changes of aortic valve repair and mitral valve repair. Hardware along the right parasternal region is similar. Decreased fluid within the right parasternal subcutaneous fat and within the right anterior mediastinal fat compared to the prior study. No soft tissue gas or pneumothorax. No pleural effusion or infiltrate. No CHF. No evidence of osteomyelitis or acute fracture. Similar subcentimeter mediastinal lymph nodes. Similar calcification adjacent to the ascending aorta. Impression: Decreased fluid in the right parasternal soft tissues compared to the prior study. Interval resolution of previously noted pericardial effusion. Benign nodules within the right lower lobe unchanged. These represent either hamartoma is or calcified granulomas. Improved aeration within both lungs with mild patchy areas of residual atelectasis. Please note that all CT scans at this facility use dose modulation, iterative reconstruction, and/or weight-based dosing when appropriate to reduce radiation dose to as low as reasonably achievable. Dictated by Lazaro Kamara MD @ 08/13/2022 11:02:51 AM (Electronically Signed)
== END 2022-08-12 14:50 | disposition home or self-care (01) ==
LOC: CT 14:49
PROVIDERS: PCP Internal Medicine; Visit Provider Internal Medicine Pulmonary Disease
DX: J90 Pleural effusion, not elsewhere classified (principal); R91.8 Other nonspecific abnormal finding of lung field
CPT/HCPCS: 71250